=== PATIENT | male | born 1960 | race Caucasian/White ===

== ENCOUNTER 2023-03-06 15:31 | Outpatient (CLI) | payer BC, SELFPAY ==
[2023-03-10 12:54] LABS: Testosterone, Low Level 205 ng/dL (300-720)
== END 2023-03-06 15:32 | disposition home or self-care (01) ==
PROVIDERS: Visit Provider Internal Medicine
DX: C61 Malignant neoplasm of prostate (principal)
CPT/HCPCS: 36415; 84403

== ENCOUNTER 2023-04-18 13:15 | Outpatient (RCR) | payer BC, SELFPAY ==
--- NOTE | 2023-03-20 09:22 | URNOTE ---
Per [employer], prior authorization is not required for [place] ([id number]). Ref #[id number]
[2023-03-21 14:01] VITALS: BP 171/103; PULSE 96; RESP 16; TEMP 33.3; O2SAT 96
[2023-03-21] MEDS: LEUPROLIDE ACETATE 7.5 MG (SQ) SYRINGE SUBCUT (14:30)
[2023-04-18 13:27] VITALS: BP 155/88; PULSE 81; RESP 16; TEMP 36.5; O2SAT 99
[2023-04-18] MEDS: LEUPROLIDE ACETATE 22.5 MG (SQ) SYRINGE SUBCUT (13:40)
== END 2023-09-17 23:59 | disposition home or self-care (01) ==
LOC: CCIC 13:15
PROVIDERS: Visit Provider Internal Medicine Hematology & Oncology
DX: C61 Malignant neoplasm of prostate (principal)
CPT/HCPCS: 96401; J9217